=== PATIENT | male | born 1945 | race Two or more races ===

== ENCOUNTER 2020-02-12 15:44 | Outpatient (REF) | payer OTHER, SELFPAY | END 2020-02-12 15:45 | disposition home or self-care (01) | LOC: HO.SCI 15:44 | DX: R51.9 Headache, unspecified (principal) ==

== ENCOUNTER 2020-02-29 13:20 | Outpatient (REF) | payer OTHER, SELFPAY ==
[2020-02-29 14:05] LABS: Blood Urea Nitrogen 19 mg/dL (9-16); Estimated Glomerular Filt Rate 46
== END 2020-02-29 13:21 | disposition home or self-care (01) ==
LOC: HO.MRI 13:20
PROVIDERS: PCP Internal Medicine; Visit Provider Psychiatry & Neurology Neurology
DX: R51.9 Headache, unspecified (principal)
CPT/HCPCS: 82565; 84520